=== PATIENT | female | born 1950 | race African-American/Black ===

== ENCOUNTER 2016-11-17 12:25 | Emergency (ER) | payer OTHER ==
[~2016-11-17] VITALS: Ht 165.1 cm; Wt 68.0 kg
[2016-11-17 12:44] VITALS: BP 130/80
--- NOTE | 2016-11-17 12:56 | Emergency Room Report ---
History of Present Illness General Chief Complaint: General Complaint Source: Patient (MIGUE ROSAS) Present Illness HPI The patient is a 66-year-old female presenting for left rib pain which began 2 weeks prior. She states that she was at work and moving a patient on a bed when she felt a sharp pain to the left rib. Pain has continued and is now a 5/ 10 dull ache. Worse with movement such as twisting and deep breaths.Pain better with laying down. She denies other symptoms such as SOB, CP, hemoptysis, cough, N, V, F, chills (MIGUE ROSAS P.AJoel) Allergies: Coded Allergies: No Known Allergies (Unverified , 11/17/16) Patient History Past Medical History: see triage record Pertinent Family History: none Reviewed Nursing Documentation: PMH: Agreed, PSxH: Agreed (MIGUE ROSAS) Nursing Documentation-PMH Past Medical History: No Stated History (MIGUE ROSAS) Review of Systems All Other Systems: negative except mentioned in HPI (MIGUE ROSAS P.Moise) Physical Exam Vital Signs Date Time Temp Pulse Resp B/P (MAP) Pulse Ox O2 Delivery O2 Flow Rate FiO2 11/17/16 12:34 98.1 78 16 130/80 98 Room Air Sp02 EP Interpretation: reviewed, normal General Appearance: no apparent distress, alert, GCS 15, non-toxic Head: normocephalic, atraumatic Eyes: bilateral eye normal inspection, bilateral eye PERRL ENT: hearing grossly normal, normal pharynx, no angioedema, normal voice Neck: full range of motion, supple/symm/no masses Respiratory: chest non-tender, normal breath sounds, no wheezing, speaking full sentences, chest symmetrical Musculoskeletal: tender - TTP over the L anterior 6th and 7th ribs. No flail chest. Neurologic: alert, oriented x3, responsive, motor strength/tone normal, sensory intact, speech normal Psychiatric: judgement/insight normal, memory normal, mood/affect normal, no suicidal/homicidal ideation Skin: normal color, no rash, warm/dry, well hydrated Lymphatic: no adenopathy (MIGUE ROSAS) Medical Decision Making PA Attestation Dr. Desai is my supervising physician. Patient management was discussed with my supervising physician (MIGUE ROSAS) Medicare Attestation The history of Mason Colunga has been reviewed and management options for her have been examined and discussed by Roberto Desai. I have personally examined and interviewed the patient. (ROBERTO DESAI M.D.) Diagnostic Impression: Primary Impression: Intercostal muscle strain Qualified Codes: S29.011A - Strain of muscle and tendon of front wall of thorax, initial encounter ER Course The patient is a 66-year-old female presenting with left-sided rib pain Differential diagnosis considered not limited to: Muscle strain, fracture, contusion, pneumothorax, among others Physical exam: No apparent distress Lungs are clear to auscultation bilaterally. No flail chest. No ecchymosis. No respiratory distress. There is tender to palpation over the left anterior and lateral distal ribs and intercostal muscles. Ribs series shows no acute findings The patient will be discharged home with prescription for Motrin and Robaxin. ER precautions are given (MIGUE ROSAS.AJoel) Other X-Ray Diagnostic Results Other X-Ray Diagnostic Results : X-Ray ordered: L rib series # of Views/Limited Vs Complete: Complete - 6 views Indication: Pain EP Interpretation: Yes Interpretation: no dislocation, no soft tissue swelling, no fractures Impression: No acute disease Interpreting ER Provider: Roberto Desai MD PA Scribe Text I am acting as scribe for my supervising physician. My supervising physician's interpretation of the L rib series xrays are there are no acute findings (MIGUE ROSAS P.AJoel) Last Vital Signs Date Time Temp Pulse Resp B/P (MAP) Pulse Ox O2 Delivery O2 Flow Rate FiO2 11/17/16 12:44 98.1 77 16 130/80 98 Room Air Status: improved (MIGUE ROSAS P.A.) Disposition: HOME, SELF-CARE Condition: Improved Scripts Ibuprofen* (MOTRIN*) 600 Mg Tablet 600 MG ORAL Q8H Y for For Pain, #30 TAB 0 Refills Prov: EDELANYUEY P.A. 11/17/16 Methocarbamol* (ROBAXIN-750*) 750 Mg Tablet 750 MG PO TID, #21 TAB 0 Refills Prov: TERZIANYUEY P.A. 11/17/16 MIGUE ROSAS Nov 17, 2016 12:56 ROBERTO DESAI M.D. Nov 19, 2016 15:44
[2016-11-17] MEDS ORDERED: IBUPROFEN600 MG ORAL (13:59)
[2016-11-17] MEDS ORDERED: ROBAXIN-750750 MG PO (13:59)
[2016-11-17 14:11] VITALS: BP 131/79
--- NOTE | 2016-11-17 15:02 | Diagnostic Imaging Report ---
Indication: Pain Comparison: None Findings: Left rib series is performed with 3 views. No definite fracture is identified. The left lung is clear. No pneumothorax seen or pleural effusion. The bones are osteopenic. Impression: No acute fracture identified
== END 2016-11-17 14:11 | disposition home or self-care (01) ==
LOC: EMR 13:10
DX: S29.011A Strain of muscle and tendon of front wall of thorax, initial encounter (principal); X50.0XXA Overexertion from strenuous movement or load, initial encounter; Y93.9 Activity, unspecified; Y99.0 Civilian activity done for income or pay; M85.80 Other specified disorders of bone density and structure, unspecified site
CPT/HCPCS: 99284